=== PATIENT | male | born 1940 | race Hispanic/Latino ===

== ENCOUNTER → 2018-02-06 | Day surgery (SDC) | payer OTHER ==
[2018-01-29 12:17] LABS: BASOPHILS # (AUTO) 0.1 (0.0-0.1); BASOPHILS % 0.7 % (0.0-1.0); EOSINOPHILS # (AUTO) 0.2 (0.0-0.4); EOSINOPHILS % 2.5 % (0.0-6.0); HEMATOCRIT 33.5 % (38.2-49.6); HEMOGLOBIN 11.2 g/dL (14.0-18.0); LYMPHOCYTES # (AUTO) 2.1 (1.0-3.2); LYMPHOCYTES % 29.7 % (18.0-39.1); MEAN CORPUSCULAR HEMOGLOBIN 30.5 pg (28-32); MEAN CORPUSCULAR HGB CONC 33.4 g/dL (31-35); MEAN CORPUSCULAR VOLUME 91.3 fL (81-99); MONOCYTES # (AUTO) 0.7 (0.2-0.8); MONOCYTES % 9.4 % (4.4-11.3); NEUTROPHILS # (AUTO) 4.1 (2.1-6.9); NEUTROPHILS % 57.4 % (38.7-80.0); PLATELET COUNT 165 x10e3/uL (140-360); RED BLOOD COUNT 3.67 x10e6/uL (4.3-5.7); RED CELL DISTRIBUTION WIDTH 13.7 % (11.7-14.4)
--- NOTE | 2018-01-29 15:09 | Diagnostic Imaging Report ---
PROCEDURE: Frontal and lateral views of the chest. COMPARISON: None. INDICATIONS: PREOPERATIVE CHEST XRAY FOR ULNAR SURGERY FINDINGS: Lines/tubes: None. Lungs: The lungs are well inflated and clear. There is no evidence of pneumonia or pulmonary edema. Pleura: There is no pleural effusion or pneumothorax. Heart and mediastinum: Aortic arch calcifications. The heart and the mediastinum are otherwise normal. Bones: No acute bony abnormality. IMPRESSION: No acute cardiopulmonary disease. Dictated by: Gerard Jeronimo M.D. on 01/29/2018 at 15:09 Electronically approved by: Gerard Jeronimo M.D. on 01/29/2018 at 15:09
[~2018-02-06] MED LIST: ASPIR-LOW81 MG; ATORVASTATIN CA10 MG PO; BUPIVACAINE HCL 0.5% INJ 30 ML VIAL INJ ONE; CEFAZOLIN SOD 1 GM VIAL ONE; CLOPIDOGREL75 MG PO; DEXAMETHASONE SOD PHOS INJ 4 MG/ML VIAL ONE; DOXAZOSIN; FENTANYL CITRATE/PF 100MCG/2 ML INJ ONE; FERROUS SULFAT325 MG; KETOROLAC TROMETHAMINE 30 MG/ML VIAL ONE; LIDOCAINE HCL 2% LOCAL INJ 5 ML SDV VIAL INJ ONE; LISINOPRIL; MIDAZOLAM HCL 2 MG/2 ML VIAL ONE; MUPIROCIN 2% OINT 22 GM TUBE ONE; OMEPRAZOLE; ONDANSETRON HCL INJ 2 MG/ML VIAL ONE; PROPOFOL IV EMULSION 10 MG/ML 20 ML VIAL ONE; SEVOFLURANE INHAL SOLN 250 ML PEN BTL ONE; TRAZODONE HCL50 MG PO
--- OUTSIDE RECORDS SUMMARY | 2018-02-06 06:21 | XMS REPORT ---
Author Author [facility] Address Unknown Phone Unavailable Care Team Providers Care Sales Enablement Manager Name Role Phone ALMA RIVAS Unavailable Unavailable Problems This patient has no known problems. Allergies, Adverse Reactions, Alerts This patient has no known allergies or adverse reactions. Medications This patient has no known medications. Results Test Description Test Time Test Comments Text Results Atomic Results Result Comments CHEST 2 VIEWS [place] [address] Patient Name: PERRY NARVAEZ MR #: [id number] : 1940 Age/Sex: 77/M Req #: [id number] Adm Physician: Ordered by: ALMA RIVAS MD Report # : [id number] Location: OR Room/Bed: Procedure: [id number] DX/CHEST 2 VIEWS Exam Date: 01/29/18 Exam Time : 1310 REPORT STATUS: Signed PROCEDURE: Frontal and lateral views of the chest. COMPARISON: None. INDICATIONS: PREOPERATIVE CHEST XRAY FOR ULNAR SURGERY FINDINGS: Lines/tubes: None. Lungs: The lungs are well inflated and clear. There is no evidence of pneumonia or pulmonary edema. Pleura: There is no pleural effusion or pneumothorax. Heart and mediastinum: Aortic arch calcifications. The heart and the mediastinum are otherwise normal. Bones: No acute bony abnormality. IMPRESSION: No acute cardiopulmonary disease. Dictated by: Gerard Gupta M.D. on 01/29/2018 at 15:09 Electronically approved by: Gerard Gupta M.D. on 01/29/2018 at 15:09 Dictated By: GERARD GUPTA MD [id number] Transcribed By: JUAN on 01/29/18 1507 COPY TO: ALMA RIVAS MD
--- NOTE | 2018-02-07 10:47 | Operative Report ---
DATE OF PROCEDURE: February 06, 2018 PREOPERATIVE DIAGNOSIS: Compression neuropathy, left ulnar nerve, cubital tunnel. POSTOPERATIVE DIAGNOSIS: Compression neuropathy, left ulnar nerve, cubital tunnel. PROCEDURE: Left ulnar nerve decompression, neuropathy, transposition. ANESTHESIA: General. HISTORY: The patient is a 77-year-old male who has nerve conduction study testing showing moderately severe left cubital tunnel syndrome. The risks, benefits, and alternatives of treatment discussed with the patient and the family, and they are prepared to undergo the procedures outlined. DESCRIPTION OF PROCEDURE: Patient was marked preoperatively in the holding area. He is brought to the operating theater and after the induction of adequate general anesthesia, he is prepped and draped in a supine position, a time out is performed. The procedure is begun by marking out the medial epicondyle. An incision is marked out approximately 4 to 5 cm proximal to this directly over the intermuscular septum and also a distal incision marked out from the medial epicondyle over the flexor pronator muscle mass for a distance of 4 to 5 cm. The left upper extremity is exsanguinated and the tourniquet is inflated to a pressure of 250 mmHg. The incision is made through the skin and subcutaneous tissues. Venous tributaries are coapted with bipolar cautery. The skin and subcutaneous tissue is elevated off the medial epicondyle and then distally off of the flexor pronator muscle mass and proximally away from the intermuscular septum and fascia. The intermuscular septum and fascia is incised posteriorly just directly over the ulnar nerve, and the ulnar nerve is identified. Using this as a guide, the fascia overlying the ulnar nerve is divided from proximal to distal through the cubital tunnel keeping the ulnar nerve in sight and protecting and preserving it throughout its course. Just distal to the cubital tunnel, the flexor pronator muscle mass is divided directly over the ulnar nerve and the muscle fibers are gently teased apart in a direction of their fibers until the first and second muscular branches of the ulnar nerve are identified. At this point, the compression of the ulnar nerve has been released, and the nerve is now going to be transposed and this is done as follows: The nerve is elevated gently out of its bed proximally, and using a 1/4-inch [place] drain, it is placed around the nerve and used for traction. All of the posterior attachments to the nerve are then bluntly released until the nerve is completely freed up and able to be transposed without any retaining attachments. At this point, the flexor pronator muscle mass is divided over the course of the new nerve in order to allow the nerve to have a gentle smooth course from its subcutaneous position back to its intermuscular position. At this point, the nerve is then transposed subcutaneously underneath the soft tissues to prevent subluxation of the nerve back into the cubital tunnel, a subcutaneous sling is fashioned utilizing 3-0 Vicryl in an interrupted figure-of-8 fashion approximating the subcutaneous fascia down to the medial epicondyle keeping the nerve in its transposed location. The elbow is placed through a range of motion and it is noted that the nerve glide smoothly without any kinking and without any sites of new compression on it. The distal intermuscular septum is removed for a distance of several centimeters in order to prevent a site of rachel compression as well. At this point, the wound is copiously irrigated with bacteriostatic saline, the skin is approximated with 4-0 Vicryl in interrupted buried fashion, followed by 5-0 nylon in interrupted horizontal mattress fashion. A Marcaine field block is performed at the operative site, tourniquet is deflated, all the fingers pinked up nicely, the wound is noted to be hemostatic. A sterile bulking conforming bandage is applied from the wrist to the axilla and a fiberglass splint is added posteriorly and held in place with a loosely wrapped Tyler wrap to keep the elbow at approximately 100 to 120 degrees of extension. Patient tolerated the procedure well, is brought to recovery room in satisfactory condition and discharged with a postoperative instruction sheet as well as a followup appointment. Job#: [id number]
== END | disposition home or self-care (01) ==
LOC: OR 06:19
PROVIDERS: ATTEND Plastic Surgery
DX: G56.22 Lesion of ulnar nerve, left upper limb (principal); I10 Essential (primary) hypertension; I25.10 Atherosclerotic heart disease of native coronary artery without angina pectoris; Z01.810 Encounter for preprocedural cardiovascular examination; Z01.812 Encounter for preprocedural laboratory examination; Z01.818 Encounter for other preprocedural examination; Z79.82 Long term (current) use of aspirin; Z79.02 Long term (current) use of antithrombotics/antiplatelets; Z98.61 Coronary angioplasty status
CPT/HCPCS: 36415; 64718; 71046; 85025; 93005; J0690; J1100; J1885; J2001; J2250; J2405